=== PATIENT | male | born 2000 | race Caucasian/White ===

== ENCOUNTER 2022-05-01 17:35 | Emergency (ER) | payer BC ==
[2022-05-01] MEDS ORDERED: Lidocaine 1% 5 ML VIAL INJECT STA (20:02)
[2022-05-01] MEDS ORDERED: Diphtheria,Pertussis(Acell),Tetanus Vaccine 0.5 ML Syringe IM ONE (20:02)
== END 2022-05-01 21:10 | disposition home or self-care (01) ==
LOC: MW.ED 17:35
DX: S51.811A Laceration without foreign body of right forearm, initial encounter (principal); Z23 Encounter for immunization; W26.8XXA Contact with other sharp object(s), not elsewhere classified, initial encounter; Y93.67 Activity, basketball
CPT/HCPCS: 12002; 90471; 90715; 99282-25; 99283; J3490